=== PATIENT | male | born 1950 | race Caucasian/White ===

== ENCOUNTER 2017-10-07 06:27 | Day surgery (SDC) | payer MEDICARE, OTHER ==
[~2017-10-07 06:27] MED LIST: Dextrose 5%-0.45% NaCl 1,000 ML IV SCH; Midazolam 1 MG/ML 2 ML SDV ONE; Sodium Chloride 0.9% 10 ML Syringe FLUSH PRN; fentaNYL 100 MCG/2 ML SDV ONE
[2017-10-07] MEDS ORDERED: Midazolam 1 MG/ML 2 ML SDV IV ONE ×3 (06:28→07:47)
[2017-10-07] MEDS ORDERED: fentaNYL 100 MCG/2 ML SDV IV ONE ×3 (06:28→07:46)
--- NOTE | 2017-10-07 11:29 | OR ---
DATE: 10/07/2017 PROCEDURES: Esophagogastroduodenoscopy, narrow-band imaging, and multiple pinch biopsies. INSTRUMENT USED: GIF-H180 Olympus video panendoscope. PREMEDICATIONS: No oral topical anesthesia used. Fentanyl 100 mcg intravenous, Versed 3 mg intravenous. Nasal O2 cannula. The procedure was done under pulse oximetry, BP recording, and cardiac catheterization technologist. INDICATION: The patient with unexplained iron-deficiency anemia. DESCRIPTION OF PROCEDURE: Esophagogastroduodenoscopy is performed for detection of any active erosive lesions, malignancy also under consideration, H. pylori status to be determined, endoscopic hemostasis therapy if needed. The scope was passed with ease. Adequate visualization of the esophagus was made from proximal to distal areas. No upper esophageal lesions identified. No distal esophageal stricture. No uphill or downhill esophageal varices. No Joseline-Dorantes tear. No evidence of erosive esophagitis by [place] criteria. No esophageal polyp or tumor mass identified. Z-line was seen at around 40 cm distal to the oral verge, configuration consistent with grade 1 by Zapp classification. No proximal gastric varices noted. Gastric fundus examination by retroflexion showed no polypoid lesions. No gastric ulcer, malignant mass, or vascular ectasia identified. Duodenal bulb showed no ulcer. There was considerable deformity of the postbulbar area along with prominent polypoid fold noted. NBI views were obtained. Multiple pinch biopsies were obtained and sent for histopathology. No bleeding was noted from any of the visualized areas at the completion of examination. Multiple pinch biopsies were also taken from the gastric antrum and proximal body and sent for PyloriTek test for H. pylori and histopathology. Photographs were taken of the postbulbar area, duodenal bulb, gastric antrum, as well as fundus. IMPRESSION: Polypoid fold, duodenum. The patient tolerated the procedure well. [facility] /[id number]
--- NOTE | 2017-10-07 12:59 | LETTER ---
10/07/2017 Mónica Philip NP [facility] [address] [place] [address] RE: YING ARELLANO : 1950 Dear Ms. Philip: Mr. Ying Arellano had esophagogastroduodenoscopy done this morning and he tolerated the procedure well. I herewith send a copy of the endoscopy note and photographs for your review. Thank you, Sincerely, [facility] /[id number]
== END 2017-10-07 10:03 | disposition home or self-care (01) ==
LOC: DL.ENDO 06:27
PROVIDERS: ATTEND Internal Medicine Gastroenterology
DX: K31.7 Polyp of stomach and duodenum (principal); I10 Essential (primary) hypertension; E78.5 Hyperlipidemia, unspecified; E11.9 Type 2 diabetes mellitus without complications; I25.10 Atherosclerotic heart disease of native coronary artery without angina pectoris; E66.01 Morbid (severe) obesity due to excess calories; I50.9 Heart failure, unspecified; Z95.0 Presence of cardiac pacemaker; Z95.1 Presence of aortocoronary bypass graft; Z86.718 Personal history of other venous thrombosis and embolism; Z68.30 Body mass index [BMI] 30.0-30.9, adult
CPT/HCPCS: 43239; 87077; 88305; J2250; J3010; J7042